=== PATIENT | female | born 1985 | race African-American/Black ===

== ENCOUNTER 2018-06-07 18:49 | Emergency (ER) | payer BC, OTHER ==
[2018-06-07 20:25] LABS: Bilirubin Negative (Negative); Blood, Urine Negative (Negative); Clarity CLOUDY (Clear); Glucose, Urine (Dipstick) Negative (Negative); Leukocyte Negative (Negative); Nitrite Negative (Negative); Protein, Urine (Dipstick) Negative (Neg-Trace); Specific Gravity, Urine 1.029 (1.002-1.036); Urobilinogen 0.2 mg/dL (0.2-1.0)
[2018-06-07 20:26] LABS: Pregnancy Test - Urine (BHCG) Negative (Negative)
[2018-06-07 20:27] LABS: Pregu Control Background? CLEAR/WHITE (CLR/WHITE); Pregu Control Bar Appear? YES (CONTROL BAR); Specific Gravity 1.029 (1.002-1.036)
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
[2018-06-07] MEDS ORDERED: Ketorolac Tromethamine 30 MG/ML VIAL ONE (21:49)
== END 2018-06-07 21:55 | disposition home or self-care (01) ==
LOC: ERS 18:49
DX: S09.90XA Unspecified injury of head, initial encounter (principal); S00.83XA Contusion of other part of head, initial encounter; S80.01XA Contusion of right knee, initial encounter; M54.2 Cervicalgia; Z79.84 Long term (current) use of oral hypoglycemic drugs; Z87.891 Personal history of nicotine dependence; J45.909 Unspecified asthma, uncomplicated; V43.52XA Car driver injured in collision with other type car in traffic accident, initial encounter
CPT/HCPCS: 70450; 72100; 72125; 81003; 81025; J1885

== ENCOUNTER 2020-09-02 13:47 | Outpatient (CLI) | payer BC | END 2020-09-02 13:48 | disposition home or self-care (01) | LOC: DTY/OP 13:47 | PROVIDERS: ATTEND Surgery | DX: E66.01 Morbid (severe) obesity due to excess calories (principal) | CPT/HCPCS: 97802 ==

== ENCOUNTER 2020-09-24 09:45 | Inpatient (IN) | payer OTHER ==
[2020-10-01 10:35] VITALS: BMI 50.1
[2020-10-02] MEDS ORDERED: Levofloxacin 500 mg/D5W 100 ml Premix Bag ONE (09:22)
[2020-10-02] MEDS ORDERED: Heparin 5,000 UNITS/ML VIAL ONE (09:22)
[2020-10-02] MEDS ORDERED: Dexamethasone 20 MG/5 ML VIAL ONE (09:50)
[2020-10-02] MEDS ORDERED: Glycopyrrolate 0.2 MG/ML 5 ML SYRINGE ONE (09:50)
[2020-10-02] MEDS ORDERED: ePHEDrine 50 MG/ML VIAL ONE (09:50)
[2020-10-02] MEDS ORDERED: Ondansetron PF 4 MG/2 ML Vial ONE (09:50)
[2020-10-02] MEDS ORDERED: Ketorolac Tromethamine 30 MG/ML VIAL ONE (09:50)
[2020-10-02] MEDS ORDERED: Rocuronium Bromide 10 MG/ML (10ML VIAL) ONE (09:50)
[2020-10-02] MEDS ORDERED: Lidocaine 1% PF 5 ML VIAL ONE (09:50)
[2020-10-02] MEDS ORDERED: PROPOFOL 200 MG/20 ML VIAL ONE (09:50)
[2020-10-02] MEDS ORDERED: Bupivacaine 0.25% HCL 30 ML VIAL ONE (11:32)
[2020-10-02] MEDS ORDERED: Lidocaine 1% w/Epinephrine 1:100K 20 ML VIAL ONE (11:32)
[2020-10-02] MEDS ORDERED: Fentanyl 100 MCG/2 ML VIAL ONE ×3 (11:39→13:46)
[2020-10-02] MEDS ORDERED: Dexmedetomidine 200 MCG/2 ML VIAL ONE (11:40)
[2020-10-02] MEDS ORDERED: HYDROmorphone 0.5 MG/0.5 ML SYRINGE ONE (11:40)
[2020-10-02] MEDS ORDERED: Midazolam HCl 2 mg/2 ml Vial ONE (11:50)
[2020-10-02] MEDS ORDERED: Non-Formulary Medication 1 EACH PO PRN (13:27)
[2020-10-02] MEDS ORDERED: diphenhydrAMINE 50 MG/ML VIAL IM/IV PRN (13:30)
[2020-10-02] MEDS ORDERED: Zolpidem Tartrate 5 MG TAB PO PRN (13:30)
[2020-10-02] MEDS ORDERED: fentaNYL Citrate/PF 2,000 MCG in Sodium Chloride 0.9% 60 ML IV PRN (13:30)
[2020-10-02] MEDS ORDERED: Promethazine HCl 25 MG/ML VIAL IM/IV PRN (13:30)
[2020-10-02] MEDS ORDERED: Ondansetron HCl/PF 4 MG/2 ML Vial IVP PRN (13:30)
[2020-10-02] MEDS ORDERED: Naloxone HCl 0.4 mg/ml Vial IV PRN (13:30)
[2020-10-02] MEDS ORDERED: Ondansetron PF 4 MG/2 ML Vial IVP PRN (13:30)
[2020-10-02] MEDS ORDERED: Promethazine HCl 25 MG/ML VIAL IM PRN ×2 (13:30→13:47)
[2020-10-02] MEDS ORDERED: diphenhydrAMINE 25 MG CAP PO PRN (13:30)
[2020-10-02] MEDS ORDERED: hydrALAZINE 20 MG/ML VIAL SLOW IVP PRN (13:47)
[2020-10-02] MEDS ORDERED: Dextrose 5% in Water 1,000 ML IV PRN (13:47)
[2020-10-02] MEDS ORDERED: Dextrose 50% Abboject 50 ML SYRINGE SLOW IVP PRN (13:47)
[2020-10-02] MEDS ORDERED: Non-Formulary Item 1 EACH (Albuterol Sulfate [Proair Hfa] 8.5 GM Hfa.Aer.Ad) INH PRN (13:47)
[2020-10-02] MEDS ORDERED: diphenhydrAMINE 50 MG/ML VIAL IVP PRN (13:47)
[2020-10-02] MEDS ORDERED: diphenhydrAMINE 50 MG/ML VIAL IM PRN (14:15)
[2020-10-02] MEDS: D5 1/2 NS w/20 mEq KCL 1,000 ML IV SCH ×2 (16:00→20:19)
[2020-10-02] MEDS: Ondansetron PF 4 MG/2 ML Vial IVP PRN (20:38)
[2020-10-02] MEDS: Ketorolac Tromethamine 30 MG/ML VIAL IVP PRN (20:38)
--- NOTE | 2020-10-02 22:44 | OP ---
DATE OF PROCEDURE: 10/02/2020 PREOPERATIVE DIAGNOSIS: Morbid obesity with body mass index of 50. POSTOPERATIVE DIAGNOSIS: Morbid obesity with body mass index of 50. PROCEDURE PERFORMED: Laparoscopic sleeve gastrectomy with Ethicon staple line reinforcements and 38-Irish bougie. ANESTHESIA: General. ESTIMATED BLOOD LOSS: Minimal. COMPLICATIONS: None. SPECIMENS: Stomach. TECHNIQUE: The patient was taken to the operating room and laid supine on the operating room table. After general anesthetic was obtained, an OG tube was used to decompress the stomach. The arms and legs were double strapped to bariatric table. The abdomen was prepped and draped in a sterile fashion. Left subcostal 5-mm Optiview trocar was placed in the usual fashion without injury and high-flow pneumoperitoneum was obtained. Left and right abdominal 12 mm ports as well as a right subcostal 5-mm port were placed under direct visualization. A 5-mm incision was made at the xiphoid, and Jania was used to raise the liver off the GE junction. The short gastric blood vessels were taken down from mid body greater curve of stomach to the left blank of diaphragm. Left blank, posterior fundus, angle of His were completely dissected. There was no hiatal hernia. Short gastrics were taken down to a distance of 6 cm proximal to the pylorus. The OG tube was removed, and a 38-Irish bougie was brought in and its tip left in the antrum of the stomach. Multiple loads of [place] stapling device used to form the sleeve. The first was a green load, fired up at the distance of 6 cm proximal to the pylorus, angled up towards the incisura. Care was taken to avoid being too close to incisura. Multiple loads were then fired along the bougie. Stomach was completely transected at the angle of His. The stomach was removed from the left abdominal incision. This fascial defect was closed using GraNee needle and a Vicryl tie. There was no bleeding on the staple line. Bougie was removed, and the EGD scope was passed in the esophagus, stomach to the level of duodenum without obstruction. There was no stricture at the incisura. There was no air leakage or bleeding along the staple line. EGD scope was used to decompress the stomach, it was pulled and removed. The Jania retractor was removed under direct visualization without bleeding. All port sites were infiltrated using local anesthetic. All ports were removed under direct visualization without bleeding. Pneumoperitoneum was let down. Vicryl was used to close the fascial defect from the left abdominal incisions. All incisions were irrigated and closed using 4-0 Monocryl and Dermabond. The patient was sent to Recovery in stable condition. All instrument counts, needle counts, and lap counts were correct. Job ID: [id number]
[2020-10-03] MEDS: Ketorolac Tromethamine 30 MG/ML VIAL IVP PRN (05:51)
[2020-10-03] MEDS: Ondansetron PF 4 MG/2 ML Vial IVP PRN (05:51)
[2020-10-03] MEDS: D5 1/2 NS w/20 mEq KCL 1,000 ML IV SCH ×2 (05:52→14:49)
[2020-10-03 05:54] LABS: #Lymphocytes 0.8 thou/uL (1.20-3.40); #Monocytes 0.5 thou/uL (0.11-0.59); #Neutrophils 11.1 thou/uL (1.40-6.50); %Eosinophils 0.2 % (0.0-10.0); %Lymphocytes 6.3 % (21.0-51.0); %Monocytes 4.3 % (0.0-10.0); %Neutrophils 89.2 % (42.0-75.0); Hemoglobin 12.4 g/dL (12.0-16.0); Mean Corpuscular HGB CONC 33.9 g/dL (32.0-36.0); Mean Corpuscular Hemoglobin 29.5 pg (27.0-31.0); Mean Corpuscular Volume 87.2 fL (78.0-98.0); Mean Platelet Volume 7.5 fL (7.4-10.4); Platelet Count 322 thou/uL (130-400); RBC Distribution Width 12.5 % (11.5-14.5); White Blood Cell (WBC) Count 12.4 thou/uL (4.8-10.8)
[2020-10-03 06:05] LABS: Anion Gap 15 mmol/L (10-20); BUN (Urea Nitrogen) 9 mg/dL (7.0-18.7); Calc. Creatinine Clearance 229 mL/min (70-130); Calcium 9.1 mg/dL (7.8-10.44); Carbon Dioxide 24 mmol/L (22-29); Chloride 102 mmol/L (98-107); Glucose 142 mg/dL (70-105); Potassium 4.9 mmol/L (3.5-5.1); Sodium 136 mmol/L (136-145)
[2020-10-03] MEDS: Hydrocodone-Acetamin 15 ML UDCUP PO PRN ×3 (06:24→16:45)
[2020-10-03] MEDS ORDERED: Pantoprazole 40 MG VIAL IVP SCH (09:00)
[2020-10-03] MEDS ORDERED: Enoxaparin Sodium 40 MG/0.4 ML SYRINGE SC SCH (09:00)
[2020-10-03] MEDS ORDERED: Ketorolac Tromethamine 30 MG/ML VIAL IVP SCH (09:00)
--- NOTE | 2020-10-03 09:27 | DIS ---
DATE OF ADMISSION: 10/02/2020 DATE OF DISCHARGE: 10/03/2020 ADMITTING DIAGNOSIS: Morbid obesity. DISCHARGE DIAGNOSIS: Morbid obesity. PROCEDURE: Laparoscopic sleeve by Dr. Mendez without complication. CONDITION ON DISCHARGE: Improved. STAFF: Dr. Mendez. HOSPITAL COURSE: On postop day 1, the patient is complaining of pain, but she is tolerating liquids without difficulty. She is ambulatory. She is using her incentive spirometer. She is to be discharged home. She will follow up with me in 2 weeks. Prescriptions for Lortab Elixir, Zofran, pantoprazole already sent to [address] [place] [address]. Job ID: [id number]
[2020-10-03 11:35] VITALS: BP 122/82; TEMP 98.7
--- NOTE | 2020-10-05 13:46 | HP ---
CHIEF COMPLAINT: Morbid obesity. HISTORY OF PRESENT ILLNESS: This is a 35-year-old female who presents for weight loss surgery, presents for sleeve gastrectomy today. PAST MEDICAL HISTORY: Includes asthma. PAST SURGICAL HISTORY: None. MEDICATIONS: See list. ALLERGIES: CRAB, EGGS, PENICILLINS, LOBSTER, SHELLFISH. REVIEW OF SYSTEMS: Otherwise negative. PHYSICAL EXAMINATION: CHEST: Clear. HEART: Regular rate. ABDOMEN: Soft, nontender. ASSESSMENT: 1. Morbid obesity. 2. Asthma. PLAN: Laparoscopic sleeve gastrectomy. Risks, benefits, and alternatives discussed. She gives consent. We will do this today. Job ID: [id number]
== END 2020-10-03 17:45 | disposition home or self-care (01) | DRG 621 ==
LOC: EDSTATUS 09-29 09:45 → SURG A 10-02 08:46
PROVIDERS: ADMIT Surgery; ATTEND Surgery
PROC: 0DB64Z3 Excision of Stomach, Percutaneous Endoscopic Approach, Vertical (ICD-10-PCS; principal; 2020-10-02)
DX: E66.01 Morbid (severe) obesity due to excess calories (principal); Z68.43 Body mass index [BMI] 50.0-59.9, adult; Z88.0 Allergy status to penicillin; Z88.8 Allergy status to other drugs, medicaments and biological substances; Z91.012 Allergy to eggs; Z91.013 Allergy to seafood; Z79.899 Other long term (current) drug therapy
CPT/HCPCS: 36415; 80048; 85025; 88307; 88312; 94760; C9113; J1100; J1170; J1644; J1650; J1885; J1956; J2250; J2405; J2704; J3010; J3480; J3490; S0020

== ENCOUNTER 2020-09-29 06:14 | Outpatient (CLI) | payer OTHER, SELFPAY ==
[2020-09-29 08:36] LABS: #Basophils 0.1 10x3/uL (0.0-0.2); #Eosinphils 0.2 10x3/uL (0.0-0.5); #Monocytes 0.3 10x3/uL (0.0-1.1); #Neutrophils 2.7 10x3/uL (1.5-8.4); %Eosinophils 3.3 % (0.0-6.0); %Lymphocytes 41.6 % (18.0-47.0); %Monocytes 5.9 % (0.0-10.0); %Neutrophils 47.9 % (40.0-75.0); Hemoglobin 12.5 g/dL (12.0-16.0); Mean Corpuscular HGB CONC 32.9 G/DL (32.0-36.0); Mean Corpuscular Volume 85.2 fl (80.0-100.0); Platelet Count 326 10x3/uL (130-400); RBC Distribution Width 13.4 % (11.5-14.5); Red Blood Cell (RBC) Count 4.46 10x6/uL (3.90-5.20); White Blood Cell (WBC) Count 5.7 10x3/uL (4.5-11.0)
--- NOTE | 2020-09-29 08:41 | RAD ---
2 VIEW CHEST: Date: 09/29/2020 HISTORY: Preop. No comparison. FINDINGS: Lung robles are clear. Heart and mediastinum unremarkable. Vasculature normal. Osseous structures unr emarkable. IMPRESSION: No acute findings. POS: [facility]
[2020-09-29 08:52] LABS: ALT (SGPT) 13 U/L (8-55); AST (SGOT) 17 U/L (5-34); Albumin 4.3 g/dL (3.5-5.0); Alkaline Phosphatase 73 U/L (40-110); Anion Gap 15 mmol/L (10-20); BUN (Urea Nitrogen) 17 mg/dL (7.0-18.7); Bilirubin, Total 0.5 mg/dL (0.2-1.2); Calc. Creatinine Clearance 0 mL/min (70-130); Calcium 9.3 mg/dL (7.8-10.44); Carbon Dioxide 22 mmol/L (22-29); Chloride 106 mmol/L (98-107); Globulin 3.4 g/dL (2.4-3.5); Glucose 106 mg/dL (70-105); Potassium 4.1 mmol/L (3.5-5.1); Protein, Total 7.7 g/dL (6.0-8.3); Sodium 139 mmol/L (136-145)
[2020-09-29 11:55] LABS: BHCG - Serum Negative (NEGATIVE); Pregs Control Background? CLEAR/WHITE (CLR/WHITE); Pregs Control Bar Appear? YES (CONTROL BAR)
[2020-09-29 14:38] LABS: Hemoglobin A1c 5.5 % (4.0-6.0)
[2020-09-29 19:56] LABS: SARS-CoV-2 MS2 Positive; SARS-CoV-2 N Gene Negative; SARS-CoV-2 S Gene Negative; SARS-CoV-2 by NAA Not Detected (NotDetected); SARS-CoV-2 orf1ab Negative
== END 2020-09-29 06:15 | disposition home or self-care (01) ==
LOC: LABBT 06:14
PROVIDERS: ATTEND Surgery
DX: Z01.818 Encounter for other preprocedural examination (principal); Z20.828 Contact with and (suspected) exposure to other viral communicable diseases; E66.01 Morbid (severe) obesity due to excess calories
CPT/HCPCS: 71046; 80053; 83036; 84703; 85025; 87635; 93005; 93010; U0003